=== PATIENT | female | born 1975 | race Caucasian/White ===

== ENCOUNTER 2016-09-14 12:32 | Inpatient (IN) ==
--- NOTE | 2016-09-14 12:56 | Emergency Department Note ---
Disposition Clinical Impression: Suicidal ideation, Depression, Acute anxiety, UTI (urinary tract infection) Disposition: Admitted As Inpatient Referrals: NO,PCP [Primary Care Provider] - Forms: ED Satisfaction Letter General Adult HPI - General Chief complaint: ED Psychiatric Symptoms Stated complaint: SI/Depression Time Seen by Provider: 09/14/16 12:52 Source: patient Limitations: no limitations - History of Present Illness HPI Narrative: 41-year-old female with a history of anxiety and depression reports emergency department with increasing anxiety secondary to social issues revolving around her daughter. The patient has also felt somewhat depressed. She is feeling like harming herself. There is no history of acute self-injurious behavior or drug overdose. She has no physical complaints. There is no history of headache neck stiffness or fever no convulsion or confusion no chest pain shortness of breath or abdominal pain no vomiting or diarrhea. The patient has had no trouble walking talking hearing seeing or speaking. No convulsions or confusion. The patient denies any physical complaints or concerns, her concerns are psychiatric in nature per her history. Onset (ago): day(s) Pain Scale: 8 - Related Data Home Medications Medication Instructions Recorded Confirmed Benztropine Mesylate 0.5 mg PO BID 05/30/15 08/21/16 ClonazePAM [Klonopin] 0.5 mg PO TID PRN 05/30/15 08/21/16 Divalproex (24 HR) [Depakote ER 1,000 mg PO HS 05/30/15 08/21/16 (24 HR)] Gabapentin [Neurontin] 100 mg PO TID 05/30/15 08/21/16 HydrOXYzine 25 mg PO BID 05/30/15 08/21/16 Omeprazole [PriLOSEC] 40 mg PO DAILY 05/30/15 08/21/16 Sertraline HCl [Zoloft] 100 mg PO DAILY 05/30/15 08/21/16 Simvastatin [Zocor] 10 mg PO HS 05/30/15 08/21/16 Vitamin D2 (50,000 UNIT) 50,000 units PO QWEEK 05/30/15 08/21/16 Diazepam [Valium] 5 mg PO BID PRN 02/11/16 08/21/16 Etodolac 300 mg PO BID 02/11/16 08/21/16 Famotidine [Pepcid] 20 mg PO BID 02/11/16 08/21/16 Levothyroxine [Synthroid] 100 mcg PO 0630 02/11/16 08/21/16 Lisinopril [Zestril] 10 mg PO DAILY 02/11/16 08/21/16 Prazosin [Minipress] 3 mg PO QPM 02/11/16 08/21/16 Topiramate [Topamax] 25 mg PO BID 02/11/16 08/21/16 Promethazine [Phenergan] 25 mg PO Q6HR PRN 08/01/16 08/21/16 Previous Rx's Medication Instructions Recorded Hydrocodone/Acetaminophen [Zahl 1 tab PO TID PRN #6 tab 03/09/16 5-325 Tablet] Acetaminophen/Butalbital/Caffe 1 each PO Q6HR PRN #16 tablet 06/13/16 [Fioricet] Acetaminophen/Butalbital/Caffe 1 each PO Q6HR #12 tablet 08/21/16 [Fioricet] Promethazine [Phenergan] 25 mg PO Q6HR #16 tablet 08/21/16 Sulfamethoxazole/Trimeth DS 1 each PO BID #20 tablet 08/21/16 [Bactrim DS] Allergies Allergy/AdvReac Type Severity Reaction Status Date / Time Penicillins [PCN] Allergy Anaphylaxis Verified 05/23/16 21:10 All systems ED: reviewed and negative except as stated. Past Medical History - Past Medical History Medical history: Reports: diabetes, fibromyalgia, GERD, hyperlipidemia, hypertension, migraine, seizures, thyroid disease Surgical history: Reports: breast surgery (Breast reduction), , orthopedic, other (Carpal tunnel) Psychiatric history: Reports: anxiety, ADHD, bipolar, depression, panic disorder , PTSD, schizophrenia, previous psychiatric hospitalization GEOMATICS PROFESSOR history: Reports: no GEOMATICS PROFESSOR history - Social History Smoking Status: Never smoker Smokeless Tobacco Status: No Alcohol use: Reports: none Drug use: Reports: none Physical Exam - General Limitations: no limitations General appearance: alert - Head Head exam: atraumatic, normocephalic, normal inspection - Eye Eye exam: Present: normal appearance, PERRL, EOMI - ENT ENT exam: normal exam, normal oropharynx, mucous membranes moist - Neck Neck exam: Present: normal inspection, full ROM, trachea midline - Chest Chest inspection: Present: symmetric chest wall rise. Absent: tenderness - Respiratory Respiratory exam: Present: normal lung sounds bilaterally. Absent: respiratory distress - Cardiovascular Cardiovascular exam: Present: regular rate, normal rhythm, normal heart sounds - Abdominal Exam Abdominal exam: Present: soft, Non-Tender. Absent: tenderness, distention, guarding, rebound, rigidity - Extremities Exam Extremities exam: Present: normal inspection, full ROM. Absent: tenderness, pedal edema - Expanded Lower Extremity Exam Hip/Pelvis exam: Present: full ROM. Absent: tenderness Upper leg exam: Present: full ROM. Absent: tenderness Knee exam: Present: full ROM. Absent: tenderness Lower leg exam: Present: full ROM. Absent: tenderness Ankle exam: Present: full ROM. Absent: tenderness Foot/toe exam: Present: full ROM. Absent: tenderness Neurovascular/Tendon exam: Present: normal capillary refill. Absent: motor deficit, sensory deficit, tendon deficit - Back Exam Back exam: Present: normal inspection, full ROM. Absent: tenderness, CVA tenderness (R), CVA tenderness (L), vertebral tenderness - Neurological Exam Neurological exam: Present: alert, oriented X3, CN II-XII intact. Absent: motor sensory deficit - Psychiatric Psychiatric exam: Present: normal affect, normal mood - Skin Skin exam: Present: warm, dry, intact, normal color. Absent: rash, cyanosis, diaphoresis, erythema, pallor, mottled Course Vital Signs Temperature 97.3 F L 09/14/16 12:41 Pulse Rate 99 09/14/16 12:41 Respiratory Rate 18 09/14/16 12:41 Blood Pressure 162/95 09/14/16 12:41 O2 Sat by Pulse Oximetry 98 09/14/16 12:41 Temperature 97.3 F L 09/14/16 12:41 Pulse Rate 91 09/14/16 17:33 Respiratory Rate 15 09/14/16 17:33 Blood Pressure 144/98 09/14/16 17:33 O2 Sat by Pulse Oximetry 97 09/14/16 17:33 Oxygen Delivery Oxygen Delivery Room Air Medical Decision Making - MDM Narrative Medical decision making narrative: The patient seems to be anxious and depressed and is expressing suicidal ideation. The patient has been medically cleared. She appears to have a low- grade UTI, an initial dose of Macrodantin was given. A psychiatric consult has been obtained. The patient has been admitted to psychiatric services. Currently stable. - Lab Data Lab results reviewed: Yes I reviewed the patient's lab results. Result diagrams: 09/14/16 13:50 09/14/16 13:50 Lab Results 09/14/16 09/14/16 09/14/16 Range/Units 13:16 13:16 13:50 WBC 7.5 (4.3-11.1) K/mcL RBC 4.72 (3.82-4.97) M/mcL Hgb 13.4 (11.5-15.4) g/dL Hct 38.8 (35.3-44.9) % MCV 82.2 L (83.0-100.0) fL MCH 28.4 (28.0-33.3) pg MCHC 34.5 (31.6-35.5) g/dL RDW 12.3 (11.5-14.5) % Plt Count 192 (140-400) K/mcL MPV 9.4 (9.4-12.4) fL Immature Gran % 0.5 (0-4) % Seg Neutrophils % 59.5 % Lymphocytes % 31.6 % Monocytes % 6.1 % Eosinophils % 1.6 % Basophils % 0.7 % Neutrophils # 4.5 (1.6-8.9) K/mcL Lymphocytes # 2.4 (0.6-4.6) K/mcL Monocytes # 0.5 (0.0-1.3) K/mcL Eosinophils # 0.1 (0.0-0.6) K/mcL Basophils # 0.1 (0.0-0.2) K/mcL Sodium (136-145) mEq/L Potassium (3.5-4.5) mEq/L Chloride (98-109) mEq/L Carbon Dioxide (19-29) mEq/L BUN (7-20) mg/dL Creatinine (0.57-1.11) mg/dL Est GFR ( Amer) (> 60) Est GFR (Non-Af Amer) (> 60) BUN/Creatinine Ratio (6-26) Glucose (70-99) mg/dL Calculated Osmolality (280-300) Calcium (8.6-10.8) mg/dL Ur Specimen Adequacy Urine Color Yellow (Yellow) Urine Clarity Turbid A (Clear) Urine pH 6.0 (5.0-8.0) pH Units Ur Specific [place] 1.017 (1.010-1.025) Urine Protein 30 H (Neg-Trace) mg/dL Urine Glucose (UA) Normal (Normal) mg/dL Urine Ketones Negative (Negative) mg/dL Urine Blood Negative (Negative) Urine Nitrite Negative (Negative) Urine Bilirubin Negative (Negative) Urine Urobilinogen Normal (Normal) mg/dL Ur Leukocyte Esterase Small H (Negative) Urine Microscopic RBC 0-3 (0-3) per hpf Urine Microscopic WBC 5-15 H (0-3) per hpf Ur Squamous Epith Cells Few (None-Few) per lpf Urine Bacteria Moderate H (None-Few) per hpf Hyaline Casts None Seen (None-Few) per lpf Salicylates (15-30) mg/dL Urine Opiates Screen Negative (Oowsyr=482) ng/mL Acetaminophen (10-30) mcg/mL Ur Barbiturates Screen Negative (Mljdva=054) ng/mL Ur Phencyclidine Scrn Negative (Cutoff=25) ng/mL Ur Amphetamines Screen Negative (Gbxkdv=1980) ng/mL U Benzodiazepines Scrn Negative (Clgwtp=980) ng/mL Urine Cocaine Screen Negative (Cutoff= 300) ng/mL U Marijuana (THC) Screen Negative (Cutoff = 50) ng/mL Ethyl Alcohol (0-10) mg/dL 09/14/16 Range/Units 13:50 WBC (4.3-11.1) K/mcL RBC (3.82-4.97) M/mcL Hgb (11.5-15.4) g/dL Hct (35.3-44.9) % MCV (83.0-100.0) fL MCH (28.0-33.3) pg MCHC (31.6-35.5) g/dL RDW (11.5-14.5) % Plt Count (140-400) K/mcL MPV (9.4-12.4) fL Immature Gran % (0-4) % Seg Neutrophils % % Lymphocytes % % Monocytes % % Eosinophils % % Basophils % % Neutrophils # (1.6-8.9) K/mcL Lymphocytes # (0.6-4.6) K/mcL Monocytes # (0.0-1.3) K/mcL Eosinophils # (0.0-0.6) K/mcL Basophils # (0.0-0.2) K/mcL Sodium 134 L (136-145) mEq/L Potassium 4.4 (3.5-4.5) mEq/L Chloride 106 (98-109) mEq/L Carbon Dioxide 19 (19-29) mEq/L BUN 7 (7-20) mg/dL Creatinine 0.74 (0.57-1.11) mg/dL Est GFR ( Amer) > 60 (> 60) Est GFR (Non-Af Amer) > 60 (> 60) BUN/Creatinine Ratio 9 (6-26) Glucose 144 H (70-99) mg/dL Calculated Osmolality 279 L (280-300) Calcium 9.1 (8.6-10.8) mg/dL Ur Specimen Adequacy Urine Color (Yellow) Urine Clarity (Clear) Urine pH (5.0-8.0) pH Units Ur Specific [place] (1.010-1.025) Urine Protein (Neg-Trace) mg/dL Urine Glucose (UA) (Normal) mg/dL Urine Ketones (Negative) mg/dL Urine Blood (Negative) Urine Nitrite (Negative) Urine Bilirubin (Negative) Urine Urobilinogen (Normal) mg/dL Ur Leukocyte Esterase (Negative) Urine Microscopic RBC (0-3) per hpf Urine Microscopic WBC (0-3) per hpf Ur Squamous Epith Cells (None-Few) per lpf Urine Bacteria (None-Few) per hpf Hyaline Casts (None-Few) per lpf Salicylates < 5.0 L (15-30) mg/dL Urine Opiates Screen (Xwqkms=977) ng/mL Acetaminophen 4.0 L (10-30) mcg/mL Ur Barbiturates Screen (Tkhjtg=938) ng/mL Ur Phencyclidine Scrn (Cutoff=25) ng/mL Ur Amphetamines Screen (Pqbxhy=9949) ng/mL U Benzodiazepines Scrn (Huwrvw=847) ng/mL Urine Cocaine Screen (Cutoff= 300) ng/mL U Marijuana (THC) Screen (Cutoff = 50) ng/mL Ethyl Alcohol < 10 (0-10) mg/dL
[2016-09-14 13:36] LABS: Bilirubin,Urine Negative (Negative); Blood,Urine Negative (Negative); Clarity,Urine Turbid (Clear); Color,Urine Yellow (Yellow); Glucose,Urine (UA) Normal (Normal); Ketones,Urine Negative (Negative); Leukocyte Esterase,Urine Small (Negative); Nitrite,Urine Negative (Negative); Protein,Urine 30 mg/dL (Neg-Trace); Specific Gravity,Urine 1.017 (1.010-1.025); Urobilinogen,Urine Normal (Normal)
[2016-09-14 13:41] LABS: Amphetamine Screen,Urine Negative ng/mL (Cutoff=1000); Barbiturate Screen,Urine Negative ng/mL (Cutoff=200); Benzodiazepines Screen,Urine Negative ng/mL (Cutoff=200); Cannabinoid Screen,Urine Negative ng/mL (Cutoff = 50); Cocaine Screen,Urine Negative ng/mL (Cutoff= 300); Opiate Screen,Urine Negative ng/mL (Cutoff=300); Phencyclidine Screen,Urine Negative ng/mL (Cutoff=25)
[2016-09-14 13:52] LABS: Bacteria,Urine Moderate per hpf (None-Few)
[2016-09-14 13:53] LABS: RBC,Urine 0-3 per hpf (0-3); Squamous Epithelial Cell,Urine Few per lpf (None-Few)
[2016-09-14 13:54] LABS: Hyaline Casts,Urine None Seen per lpf (None-Few)
[2016-09-14 14:01] LABS: Basophils # 0.1 K/mcL (0.0-0.2); Basophils % 0.7 %; Eosinophils # 0.1 K/mcL (0.0-0.6); Eosinophils % 1.6 %; Hematocrit 38.8 % (35.3-44.9); Hemoglobin 13.4 g/dL (11.5-15.4); Immature Granulocytes % 0.5 % (0-4); Lymphocytes # 2.4 K/mcL (0.6-4.6); Lymphocytes % 31.6 %; Mean Corpuscular HGB Conc 34.5 g/dL (31.6-35.5); Mean Corpuscular Hemoglobin 28.4 pg (28.0-33.3); Mean Corpuscular Volume 82.2 fL (83.0-100.0); Mean Platelet Volume 9.4 fL (9.4-12.4); Monocytes # 0.5 K/mcL (0.0-1.3); Monocytes % 6.1 %; Neutrophils # 4.5 K/mcL (1.6-8.9); Platelet Count 192 K/mcL (140-400); Red Blood Count 4.72 M/mcL (3.82-4.97); Red Cell Distribution Width 12.3 % (11.5-14.5); Segmented Neutrophils % 59.5 %
[2016-09-14 14:15] LABS: BUN/Creatinine Ratio 9 (6-26); Blood Urea Nitrogen 7 mg/dL (7-20); Calcium 9.1 mg/dL (8.6-10.8); Carbon Dioxide 19 mEq/L (19-29); Chloride 106 mEq/L (98-109); Ethanol < 10 mg/dL (0-10); Glucose 144 mg/dL (70-99); Osmolality,Calculated 279 (280-300); Potassium 4.4 mEq/L (3.5-4.5); Salicylate < 5.0 mg/dL (15-30); Sodium 134 mEq/L (136-145); eGFR For African Americans > 60 (> 60); eGFR For Non-African Americans > 60 (> 60)
[2016-09-14] MEDS ORDERED: Nitrofurantoin (BID) 100 MG CAPSULE PO ONE (16:26)
[2016-09-14] MEDS ORDERED: *HR* LORazepam 1 MG TABLET PO PRN (18:39)
[2016-09-14] MEDS ORDERED: Haloperidol Lactate 5 MG/ML VIAL IM PRN (18:39)
[2016-09-14] MEDS ORDERED: *HR* LORazepam 2 MG/ML VIAL IM PRN (18:39)
[2016-09-14] MEDS ORDERED: Mag Hydrox/Al Hydrox/Simeth 30 ML UDC PO PRN (18:39)
[2016-09-14] MEDS ORDERED: MOM Conc 10 ML UD.LIQ PO PRN (18:39)
[2016-09-14] MEDS: traZODone 50 MG TABLET PO PRN (21:57)
--- NOTE | 2016-09-15 10:07 | Psychiatry History & Physical ---
Date of Encounter: 09/15/16 Time of Encounter: 10:01 History of Present Illness Patient Stated Chief Complaint: suicidal Medicare Admission Attestation: For traditional Medicare patients the provided hospital inpatient services are reasonable and necessary and in the case of services not specified as inpatient -only under 42 CFR 419.22 (n), that they are appropriately provided as inpatient services in accordance 42 CFR 412.3. For Critical Access Hospital the patient may reasonably be expected to be discharged or transferred to a hospital within 96 hours after admission to the Critical Access Hospital. Admitted From: Emergency Dept History of Present Illness: Ms. Nicholas is a 41 year old female admitted from the emergency department where she presented with suicidal ideation depression patient was reported to make comment on Facebook and she was upset that one of her daughters attempted suicide. Patient has a history of major depression recurrent and anxiety has been treated in the past with medication has not been taking medication for the last several months and displaying poor insight and judgment. Patient also was noncompliant was for medical medication and listed as diabetic however she is not taking diabetes medication patient denied any previous admission to Hospital psychiatric hospital benefits stated that she was seen as outpatient in the past. Patient has a history of intellectual deficits and she was in special classes in school and then attended up to 8th grade level. Past Med Surg Social Fam HX - Past Medical History Medical history: arthritis, diabetes, GERD, hypertension, migraine, osteoporosis , seizures, syncope - Past Psychiatric History Psychiatric history: Reports: anxiety, depression. Denies: previous psychiatric hospitalization Family psychiatric history: Unknown Family Psychiatric History Details: dtr attempted suicide Family History of Suicide: Unknown - Past Surgical History Surgical History: breast surgery, , orthopedic, other - Social History Smoking Status: Never smoker Smokeless Tobacco Status: No Alcohol use: none Drug use: none Medications & Allergies No Known Home Drugs 09/15/16 [History] Allergies Penicillins [PCN] Allergy (Verified 05/23/16 21:10) Anaphylaxis Review of Systems Psychiatric: Reports: depression, suicidal ideation Mental Status Exam Patient orientation: Yes Person, Yes Time, Yes Place Level of alertness: Sedated Patient appearance: Appropriate, Well Groomed Behavior: calm, cooperative Psychomotor activity: Slowed Eye contact: Maintains Eye Contact Mood description: Depressed, Anxious Affect description: constricted, dysphoric Speech pattern: Normal rate, Normal rhythm, Normal tone Speech volume: Soft/Quiet Thought process: Circumstantial, Tangential, Thought Blocking, Slowed Thinking Thought content: Yes Suicidal ideation Perceptual disturbances: No Auditory hallucinations, No Visual hallucinations Attention span: Capable of Focused Attention Memory description: Grossly Intact Patient reliability: Reliable Historian Intelligence estimate: Below Average Judgment: Limited Insight: Minimal Results - Vital Signs Vital signs: Temp Pulse Resp BP Pulse Ox 97.6 F 80 16 139/99 97 09/15/16 08:46 09/15/16 08:46 09/15/16 08:46 09/15/16 08:46 09/14/16 17:33 - Labs Labs: Laboratory Last Values WBC 7.5 K/mcL (4.3-11.1) 09/14/16 13:50 RBC 4.72 M/mcL (3.82-4.97) 09/14/16 13:50 Hgb 13.4 g/dL (11.5-15.4) 09/14/16 13:50 Hct 38.8 % (35.3-44.9) 09/14/16 13:50 MCV 82.2 fL (83.0-100.0) L 09/14/16 13:50 MCH 28.4 pg (28.0-33.3) 09/14/16 13:50 MCHC 34.5 g/dL (31.6-35.5) 09/14/16 13:50 RDW 12.3 % (11.5-14.5) 09/14/16 13:50 Plt Count 192 K/mcL (140-400) 09/14/16 13:50 MPV 9.4 fL (9.4-12.4) 09/14/16 13:50 Immature Gran % 0.5 % (0-4) 09/14/16 13:50 Seg Neutrophils % 59.5 % 09/14/16 13:50 Lymphocytes % 31.6 % 09/14/16 13:50 Monocytes % 6.1 % 09/14/16 13:50 Eosinophils % 1.6 % 09/14/16 13:50 Basophils % 0.7 % 09/14/16 13:50 Neutrophils # 4.5 K/mcL (1.6-8.9) 09/14/16 13:50 Lymphocytes # 2.4 K/mcL (0.6-4.6) 09/14/16 13:50 Monocytes # 0.5 K/mcL (0.0-1.3) 09/14/16 13:50 Eosinophils # 0.1 K/mcL (0.0-0.6) 09/14/16 13:50 Basophils # 0.1 K/mcL (0.0-0.2) 09/14/16 13:50 Sodium 134 mEq/L (136-145) L 09/14/16 13:50 Potassium 4.4 mEq/L (3.5-4.5) 09/14/16 13:50 Chloride 106 mEq/L (98-109) 09/14/16 13:50 Carbon Dioxide 19 mEq/L (19-29) 09/14/16 13:50 BUN 7 mg/dL (7-20) 09/14/16 13:50 Creatinine 0.74 mg/dL (0.57-1.11) 09/14/16 13:50 Est GFR ( Amer) > 60 (> 60) 09/14/16 13:50 Est GFR (Non-Af Amer) > 60 (> 60) 09/14/16 13:50 BUN/Creatinine Ratio 9 (6-26) 09/14/16 13:50 Glucose 144 mg/dL (70-99) H 09/14/16 13:50 POC Glucose 108 (58-89) H 09/15/16 07:14 Calculated Osmolality 279 (280-300) L 09/14/16 13:50 Calcium 9.1 mg/dL (8.6-10.8) 09/14/16 13:50 Ur Specimen Adequacy 09/14/16 13:16 Urine Color Yellow (Yellow) 09/14/16 13:16 Urine Clarity Turbid (Clear) A 09/14/16 13:16 Urine pH 6.0 pH Units (5.0-8.0) 09/14/16 13:16 Ur Specific [place] 1.017 (1.010-1.025) 09/14/16 13:16 Urine Protein 30 mg/dL (Neg-Trace) H 09/14/16 13:16 Urine Glucose (UA) Normal mg/dL (Normal) 09/14/16 13:16 Urine Ketones Negative mg/dL (Negative) 09/14/16 13:16 Urine Blood Negative (Negative) 09/14/16 13:16 Urine Nitrite Negative (Negative) 09/14/16 13:16 Urine Bilirubin Negative (Negative) 09/14/16 13:16 Urine Urobilinogen Normal mg/dL (Normal) 09/14/16 13:16 Ur Leukocyte Esterase Small (Negative) H 09/14/16 13:16 Urine Microscopic RBC 0-3 per hpf (0-3) 09/14/16 13:16 Urine Microscopic WBC 5-15 per hpf (0-3) H 09/14/16 13:16 Ur Squamous Epith Cells Few per lpf (None-Few) 09/14/16 13:16 Urine Bacteria Moderate per hpf (None-Few) H 09/14/16 13:16 Hyaline Casts None Seen per lpf (None-Few) 09/14/16 13:16 Salicylates < 5.0 mg/dL (15-30) L 09/14/16 13:50 Urine Opiates Screen Negative ng/mL (Hpaiim=988) 09/14/16 13:16 Acetaminophen 4.0 mcg/mL (10-30) L 09/14/16 13:50 Ur Barbiturates Screen Negative ng/mL (Gxhaax=140) 09/14/16 13:16 Ur Phencyclidine Scrn Negative ng/mL (Cutoff=25) 09/14/16 13:16 Ur Amphetamines Screen Negative ng/mL (Qondvp=6529) 09/14/16 13:16 U Benzodiazepines Scrn Negative ng/mL (Eacmet=648) 09/14/16 13:16 Urine Cocaine Screen Negative ng/mL (Cutoff= 300) 09/14/16 13:16 U Marijuana (THC) Screen Negative ng/mL (Cutoff = 50) 09/14/16 13:16 Ethyl Alcohol < 10 mg/dL (0-10) 09/14/16 13:50 Assessment and Plan (1) Depression Current visit: Yes Status: Acute Plan: Admit inpatient for safety and stabilization, Close observation, Suicide Precautions per unit protocol, Encourage participation in unit milieu, Group Therapy, Monitor sleep, Monitor appetite Additional Plan: I discussed with patient treatment plan for depression. She is willing to restart on medication and I discussed her medication history and at this time I will start her on sertraline 100 mg daily and Wellbutrin SR 150 mg daily benefits side effects were discussed with patient and she has no allergies to medication and her response will be monitored daily. Risks, benefits, side effects, alternatives discussed w/pt: Yes Patient agreeable to treatment: Yes Estimated Length of Stay (Days): 5 Qualifiers: Depression Type: major depressive disorder Major depression recurrence: recurrent Active/Remission status: currently active Major depression episode severity: moderate Qualified Code(s): F33.1 - Major depressive disorder, recurrent, moderate
[2016-09-15] MEDS: BuPROPion XL (24 HR) 150 MG TABLET PO SCH (10:36)
[2016-09-15] MEDS: traZODone 50 MG TABLET PO PRN (21:41)
[2016-09-16] MEDS: BuPROPion XL (24 HR) 150 MG TABLET PO SCH (08:35)
[2016-09-16] MEDS: Acetaminophen 325 MG TABLET PO PRN ×2 (08:54→20:28)
[2016-09-16] MEDS ORDERED: Acetaminophen 325 MG TABLET PO ONE (12:23)
--- NOTE | 2016-09-16 12:26 | Psychiatry Progress Note ---
Date of Encounter: 09/16/16 Time of Encounter: 12:23 Subjective Interval history: Patient is seen for follow-up. I reviewed nursing report and notes, patient is reported to be compliant with his medication and her acting with staff and peers appropriately. She is participating in groups. Her medication was reviewed and updated and she denies any suicidal ideation. Review of Systems Psychiatric: Reports: depression, anxiety. Denies: suicidal ideation Objective: Exam Patient orientation: Yes Person, Yes Time, Yes Place Level of alertness: Alert Patient appearance: Appropriate, Well Groomed Behavior: calm, cooperative Psychomotor activity: Slowed Eye contact: Maintains Eye Contact Mood description: Depressed, Anxious Affect description: constricted Speech pattern: Normal rate, Normal rhythm, Normal tone Speech volume: Soft/Quiet Thought process: Circumstantial, Tangential, Thought Blocking, Slowed Thinking Thought content: No Suicidal ideation, No Homicidal ideation Perceptual disturbances: No Auditory hallucinations, No Visual hallucinations Judgment: Limited Insight: Minimal Results - Vital Signs Vital Signs: Temp Pulse Resp BP Pulse Ox 98.2 F 84 16 126/92 97 09/16/16 08:25 09/16/16 08:25 09/16/16 08:25 09/16/16 08:25 09/14/16 17:33 - Labs Labs: Laboratory Results - last 24 hr 09/15/16 09/15/16 09/16/16 16:35 21:31 11:44 POC Glucose 110 H 138 H 132 H Assessment and Plan (1) Depression Current visit: Yes Status: Acute Plan: Continue hospitalization, Close observation, Suicide Precautions per unit protocol, Encourage participation in unit milieu, Group Therapy, Monitor sleep, Monitor appetite Risks, benefits, side effects, alternatives discussed w/pt: Yes Patient agreeable to treatment: Yes Qualifiers: Depression Type: major depressive disorder Major depression recurrence: recurrent Active/Remission status: currently active Major depression episode severity: moderate Qualified Code(s): F33.1 - Major depressive disorder, recurrent, moderate Consult Discharge Plan - Plan Referrals: Romaine Durán [Outside] - 09/21/16 2:00 pm (The above appointment is with Beth Díaz. After you see Beth, she will schedule you to see the new psychiatric prescriber.) [facility] - 09/21/16 10:15 am (The above appointment is with Glenis Castillo to establish you with a new primary care provider. Please arrive 15 minutes early to complete paperwork. Please bring your insurance card, photo ID and medications in their original bottles. If you do not have insurance, bring proof of income to apply for the sliding fee scale. If you are unable to keep this appointment, 24 hour business notice of cancellation is expected. )
[2016-09-16] MEDS: traZODone 50 MG TABLET PO PRN (20:28)
[2016-09-16] MEDS: hydrOXYzine pamoate 25 MG CAPSULE PO PRN (20:28)
[2016-09-17] MEDS ORDERED: Ketorolac 30 MG/ML VIAL IM STA ×2 (03:51→04:25)
[2016-09-17] MEDS ORDERED: Orphenadrine 60 MG/2 ML VIAL IM ONE (03:54)
[2016-09-17] MEDS: BuPROPion XL (24 HR) 150 MG TABLET PO SCH (08:56)
[2016-09-17] MEDS ORDERED: *HR* Promethazine 25 MG/ML VIAL IM PRN (09:00)
[2016-09-17] MEDS ORDERED: Orphenadrine 60 MG/2 ML VIAL IM PRN (09:00)
[2016-09-17] MEDS ORDERED: SUMAtriptan succinate 25 MG TABLET PO ONE (09:08)
[2016-09-17] MEDS ORDERED: Ondansetron 4 MG/2 ML VIAL IM PRN (09:10)
--- NOTE | 2016-09-17 09:20 | Internal Medicine Consult Note ---
Date of Encounter: 09/17/16 Time of Encounter: 09:13 Internal Medicine - CN: HPI - Data of Consult Patient: new to practice Requesting Physician: Konrad Harvey MD - Consult Narrative History of present illness: Ms. Nicholas is a 41 year old female consulted to hospitalist service for headache. patient was seen at the bedside, she reports that she was having headache since 7 am yesterday morning. was given a dose of toradol last night which the patient says helped somewhat. she gives h/o migraine and has nausea but has not vomited. she says she has constant headache even at home and not sure what she takes at home for that. she denies any visual problems, seizures, any focal weakness. no h/o LOC>. - Constitutional Constitutional: as per HPI - EENT Ears: as per HPI Nose, mouth and throat: as per HPI - Breasts Breasts: as per HPI - Cardiovascular Cardiovascular ROS IM: as per HPI - Respiratory Respiratory: as per HPI - Gastrointestinal Gastrointestinal: as per HPI - Genitourinary Genitourinary: as per HPI Past Med Surg Social Fam HX - Past Medical History Medical history: arthritis, diabetes, GERD, hypertension, migraine, osteoporosis , seizures, syncope Psychiatric history: anxiety, depression - Past Surgical History Surgical History: breast surgery, , orthopedic, other - Social History Smoking Status: Never smoker Smokeless Tobacco Status: No Alcohol use: none Drug use: none Internal Medicine - CN: Meds No Known Home Drugs 09/15/16 [History] Allergies Penicillins [PCN] Allergy (Verified 05/23/16 21:10) Anaphylaxis Internal Medicine - CN: Exam - Constitutional Vitals: Temp Pulse Resp BP Pulse Ox 98.4 F 99 16 129/96 97 09/16/16 21:00 09/16/16 21:00 09/16/16 21:00 09/16/16 21:00 09/14/16 17:33 General appearance IM: Present: A&O X 3, no acute distress Exam: neck- supple chest- b/l clear, no added sounds CVS-s1 and s2, no mr/g abd-soft, non tender, bs are present ext- no edema neuro- alert and awake, no focal defecits. Internal Medicine - CN: Reslt - Labs CBC & Chem 7: 09/14/16 13:50 09/14/16 13:50 - Assessment and Plan (1) Headache Current Visit: Yes Status: Acute Assessment and plan: has h/o migraine headaches and says its constant. was given a dose of toradol last night, will keep that prn for severe headache as she says it helped. will start imitrex 25 po once now and may repeat x1 after 2hrs . will also start on zofran for supportive treatment. 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 please reconsult prn as needed. Qualifiers: Headache type: other vascular headache Qualified Code(s): G44.1 - Vascular headache, not elsewhere classified (2) Suicidal ideation Current Visit: Yes Status: Acute Assessment and plan: management as per primary service. Consult Discharge Plan - Plan Instructions: Depression (DC), Anxiety (DC) Referrals: [facility] - 09/21/16 2:00 pm (The above appointment is with Beth Díaz. After you see Beth, she will schedule you to see the new psychiatric prescriber.) Ted White [facility] [Outside] - 09/21/16 10:15 am (The above appointment is with Glenis Castillo to establish you with a new primary care provider. Please arrive 15 minutes early to complete paperwork. Please bring your insurance card, photo ID and medications in their original bottles. If you do not have insurance, bring proof of income to apply for the sliding fee scale. If you are unable to keep this appointment, 24 hour business notice of cancellation is expected. )
[2016-09-17] MEDS: SUMAtriptan succinate 25 MG TABLET PO PRN (10:19)
--- NOTE | 2016-09-17 13:33 | Psychiatry Progress Note ---
Date of Encounter: 09/17/16 Time of Encounter: 13:31 Subjective Interval history: Patient is seen for follow-up. Nursing staff reported patient complained of headache and migraine headache and I ordered an internal medicine consult. Medicine consultation appreciated and recommendation whether noted patient was prescribed medication to help with her migraine headache and he was when necessary. Otherwise she continued to have her sugar under control. Her discharge planning is ongoing patient has not been compliant with his medication appointments in the past and her brother is willing to help her after discharge. She denied any suicidal ideation Review of Systems Psychiatric: Reports: depression, anxiety. Denies: suicidal ideation Objective: Exam Patient orientation: Yes Person, Yes Time, Yes Place Level of alertness: Alert Patient appearance: Appropriate, Well Groomed Behavior: calm, cooperative Psychomotor activity: Normal Eye contact: Maintains Eye Contact Mood description: Depressed, Anxious Affect description: constricted Speech pattern: Normal rate, Normal rhythm, Normal tone Speech volume: Soft/Quiet Thought process: Circumstantial, Tangential, Thought Blocking, Slowed Thinking Thought content: No Suicidal ideation, No Homicidal ideation Perceptual disturbances: No Auditory hallucinations, No Visual hallucinations Judgment: Limited Insight: Minimal Results - Vital Signs Vital Signs: Temp Pulse Resp BP Pulse Ox 98.6 F 84 16 119/83 97 09/17/16 09:00 09/17/16 09:00 09/17/16 09:00 09/17/16 09:00 09/14/16 17:33 Assessment and Plan (1) Depression Current visit: Yes Status: Acute Plan: Continue hospitalization, Close observation, Suicide Precautions per unit protocol, Encourage participation in unit milieu, Group Therapy, Monitor sleep, Monitor appetite Additional Plan: Patient complaining of more frequent headache and migraine headache she believes that Wellbutrin is causing more headache for her and she asked me if she can discontinue it. Also she mentioned that she was treated with Latuda with good results. I will discontinue Wellbutrin and start patient on Latuda 40 mg. Benefits and side effects were discussed. Risks, benefits, side effects, alternatives discussed w/pt: Yes Patient agreeable to treatment: Yes Qualifiers: Depression Type: major depressive disorder Major depression recurrence: recurrent Active/Remission status: currently active Major depression episode severity: moderate Qualified Code(s): F33.1 - Major depressive disorder, recurrent, moderate Consult Discharge Plan - Plan Instructions: Depression (DC), Anxiety (DC) Referrals: Romaine Durán [Outside] - 09/21/16 2:00 pm (The above appointment is with Beth Díaz. After you see Beth, she will schedule you to see the new psychiatric prescriber.) [facility] [Outside] - 09/21/16 10:15 am (The above appointment is with Glenis Castillo to establish you with a new primary care provider. Please arrive 15 minutes early to complete paperwork. Please bring your insurance card, photo ID and medications in their original bottles. If you do not have insurance, bring proof of income to apply for the sliding fee scale. If you are unable to keep this appointment, 24 hour business notice of cancellation is expected. )
[2016-09-17] MEDS: traZODone 50 MG TABLET PO SCH (22:12)
[2016-09-17] MEDS: Ketorolac 30 MG/ML VIAL IM PRN (22:13)
[2016-09-17] MEDS: hydrOXYzine pamoate 25 MG CAPSULE PO PRN (22:13)
[2016-09-18] MEDS: SUMAtriptan succinate 25 MG TABLET PO PRN ×3 (12:32→20:23)
--- NOTE | 2016-09-18 14:02 | Psychiatry Progress Note ---
Date of Encounter: 09/18/16 Time of Encounter: 14:14 Subjective Interval history: Patient is seen for follow-up. Nursing staff reported patient has been compliant with medication and participated in group activities. Denies suicidal ideation and reports and reports good sleep. She is planning to stay with her brother after discharge from the hospital and he will help her with appointments and taking her medication on time. Review of Systems Psychiatric: Reports: depression, anxiety. Denies: suicidal ideation Objective: Exam Patient orientation: Yes Person, Yes Time, Yes Place Level of alertness: Alert Patient appearance: Appropriate, Well Groomed Behavior: calm, cooperative Psychomotor activity: Normal Eye contact: Maintains Eye Contact Mood description: Depressed, Anxious Affect description: constricted Speech pattern: Normal rate, Normal rhythm, Normal tone Speech volume: Soft/Quiet Thought process: Circumstantial, Tangential, Thought Blocking, Slowed Thinking Thought content: No Suicidal ideation, No Homicidal ideation Perceptual disturbances: No Auditory hallucinations, No Visual hallucinations Judgment: Limited Insight: Minimal Results - Vital Signs Vital Signs: Temp Pulse Resp BP Pulse Ox 98.2 F 84 17 110/77 97 09/18/16 09:00 09/18/16 09:00 09/18/16 09:00 09/18/16 09:00 09/14/16 17:33 - Labs Labs: Laboratory Results - last 24 hr 09/17/16 21:31 POC Glucose 174 H Assessment and Plan (1) Depression Current visit: Yes Status: Acute Plan: Continue hospitalization, Close observation, Suicide Precautions per unit protocol, Encourage participation in unit milieu, Group Therapy, Monitor sleep, Monitor appetite Risks, benefits, side effects, alternatives discussed w/pt: Yes Patient agreeable to treatment: Yes Qualifiers: Depression Type: major depressive disorder Major depression recurrence: recurrent Active/Remission status: currently active Major depression episode severity: moderate Qualified Code(s): F33.1 - Major depressive disorder, recurrent, moderate Consult Discharge Plan - Plan Instructions: Depression (DC), Anxiety (DC) Referrals: Romaine Durán [Outside] - 09/21/16 2:00 pm (The above appointment is with Beth Díaz. After you see Beth, she will schedule you to see the new psychiatric prescriber.) [facility] [Outside] - 09/21/16 10:15 am (The above appointment is with Glenis Castillo to establish you with a new primary care provider. Please arrive 15 minutes early to complete paperwork. Please bring your insurance card, photo ID and medications in their original bottles. If you do not have insurance, bring proof of income to apply for the sliding fee scale. If you are unable to keep this appointment, 24 hour business notice of cancellation is expected. )
[2016-09-18] MEDS: *HR* Metformin 500 MG TABLET PO SCH (16:48)
[2016-09-18] MEDS: traZODone 50 MG TABLET PO SCH (20:23)
[2016-09-18] MEDS: hydrOXYzine pamoate 25 MG CAPSULE PO PRN (20:23)
[2016-09-18] MEDS: traZODone 50 MG TABLET PO PRN (22:55)
[2016-09-18] MEDS: Ketorolac 30 MG/ML VIAL IM PRN (22:55)
[2016-09-19] MEDS: *HR* Metformin 500 MG TABLET PO SCH ×2 (08:16→16:23)
--- NOTE | 2016-09-19 11:17 | Psychiatry Progress Note ---
Date of Encounter: 09/19/16 Time of Encounter: 11:23 Subjective Interval history: Patient is seen for follow-up. Patient states she is denying suicidal ideation she is participating in activities and compliant with medication. She was started on metformin and her blood sugar under control. She will complain of headache and respond to treatment. Review of Systems Psychiatric: Reports: depression, anxiety. Denies: suicidal ideation Objective: Exam Patient orientation: Yes Person, Yes Time, Yes Place Level of alertness: Alert Patient appearance: Appropriate, Well Groomed Behavior: calm, cooperative Psychomotor activity: Normal Eye contact: Maintains Eye Contact Mood description: Depressed, Anxious Affect description: congruent with mood, euthymic Speech pattern: Normal rate, Normal rhythm, Normal tone Speech volume: Soft/Quiet Thought process: Circumstantial, Tangential, Thought Blocking, Slowed Thinking Thought content: No Suicidal ideation, No Homicidal ideation Perceptual disturbances: No Auditory hallucinations, No Visual hallucinations Judgment: Limited Insight: Minimal Results - Vital Signs Vital Signs: Temp Pulse Resp BP Pulse Ox 98.4 F 77 16 118/76 97 09/19/16 08:13 09/19/16 08:13 09/19/16 08:13 09/19/16 08:13 09/14/16 17:33 - Labs Labs: Laboratory Results - last 24 hr 09/18/16 09/19/16 16:26 07:10 POC Glucose 100 H 87 Assessment and Plan (1) Depression Current visit: Yes Status: Acute Plan: Continue hospitalization, Close observation, Suicide Precautions per unit protocol, Encourage participation in unit milieu, Group Therapy, Monitor sleep, Monitor appetite Risks, benefits, side effects, alternatives discussed w/pt: Yes Patient agreeable to treatment: Yes Qualifiers: Depression Type: major depressive disorder Major depression recurrence: recurrent Active/Remission status: currently active Major depression episode severity: moderate Qualified Code(s): F33.1 - Major depressive disorder, recurrent, moderate Consult Discharge Plan - Plan Instructions: Depression (DC), Anxiety (DC) Referrals: Romaine Durán [Outside] - 09/21/16 2:00 pm (The above appointment is with Beth Díaz. After you see Beth, she will schedule you to see the new psychiatric prescriber.) [facility] [Outside] - 09/21/16 10:15 am (The above appointment is with Glenis Castillo to establish you with a new primary care provider. Please arrive 15 minutes early to complete paperwork. Please bring your insurance card, photo ID and medications in their original bottles. If you do not have insurance, bring proof of income to apply for the sliding fee scale. If you are unable to keep this appointment, 24 hour business notice of cancellation is expected. )
[2016-09-19] MEDS: SUMAtriptan succinate 25 MG TABLET PO PRN ×3 (13:20→21:13)
[2016-09-19] MEDS: traZODone 50 MG TABLET PO SCH (21:12)
[2016-09-19] MEDS: hydrOXYzine pamoate 25 MG CAPSULE PO PRN (21:35)
[2016-09-20] MEDS: *HR* Metformin 500 MG TABLET PO SCH (07:02)
[2016-09-20 09:32] VITALS: BP 108/72
--- NOTE | 2016-09-20 10:20 | Discharge Summary ---
Date of Encounter: 09/20/16 Time of Encounter: 10:36 Diagnosis - Discharge Diagnosis (1) Depression Priority: Primary Status: Acute Qualifiers: Depression Type: major depressive disorder Major depression recurrence: recurrent Active/Remission status: currently active Major depression episode severity: moderate Qualified Code(s): F33.1 - Major depressive disorder, recurrent, moderate (2) Suicidal ideation Priority: Secondary Status: Acute Medications - Discharge Medications Prescriptions: Lurasidone [Latuda] 40 mg PO DAILY #30 tablet Metformin [Glucophage] 500 mg PO BIDWM #60 tablet SUMAtriptan [Imitrex] 25 mg PO Q2H PRN #10 tablet PRN Reason: Migraine Headache Sertraline [Zoloft] 100 mg PO DAILY #30 tablet TraZODone 100 mg PO HS #30 tablet Lurasidone [Latuda] 40 mg PO DAILY #30 tablet 09/20/16 [Rx] Metformin [Glucophage] 500 mg PO BIDWM #60 tablet 09/20/16 [Rx] SUMAtriptan [Imitrex] 25 mg PO Q2H PRN #10 tablet 09/20/16 [Rx] Sertraline [Zoloft] 100 mg PO DAILY #30 tablet 09/20/16 [Rx] TraZODone 100 mg PO HS #30 tablet 09/20/16 [Rx] Allergies Penicillins [PCN] Allergy (Verified 05/23/16 21:10) Anaphylaxis Provider Date of admission: 09/14/16 18:02 Primary care physician: PCP NO Discharging clinician: Konrad Harvey Assessment and Plan - Patient/Caregiver Discharge Instructions Activity: resume usual activities as tolerated Diet: regular diet - Follow up Plan Follow up with: Romaine Durán [Outside] - 09/21/16 2:00 pm (The above appointment is with Beth Díaz. After you see Beth, she will schedule you to see the new psychiatric prescriber.) [facility] - 09/21/16 10:15 am (The above appointment is with Glenis Castillo to establish you with a new primary care provider. Please arrive 15 minutes early to complete paperwork. Please bring your insurance card, photo ID and medications in their original bottles. If you do not have insurance, bring proof of income to apply for the sliding fee scale. If you are unable to keep this appointment, 24 hour business notice of cancellation is expected. ) Overall status at discharge: Stable Disposition: Home, Self-Care Hospital Course Hospital course: Ms. Nicholas is a 41 year old female admitted with depression and suicidal ideation in addition to noncompliance with medication treatments. For details of the admission please see H&P. On admission patient medication were reviewed information was not available because she was not taking any medication for several months prior to admission. The nursing staff verified previous prescription from pharmacy and patient was placed on Zoloft and trazodone and Latuda 40 mg in addition to other medication prescribed by her primary care. Patient also was seen by the consult from neurology to evaluate migraine. Patient responded well to medication she did not tolerate Wellbutrin and it was discontinued but she responded well to other medication she reported improved sleep stable moods and denies suicidal ideation also her blood sugar was monitored and she was started on metformin. dish room worker contacted patient's brother and discussed with him discharge plan and compliance with medication and appointments and also safety plan. He was supportive and accepted patient to stay with him after discharge. Prior to discharge patient was medically stable and denies suicidal ideation was future oriented and looking forward to discharge. - Time Spent with Patient Total time spent providing and/or coordinating discharge services: Less than 30 minutes Quality - Multiple Antipsychotics Patient discharged on 2 or more antipsychotic medications: No Procedures - Procedures Procedures: Medication Management, Crisis Stabilization, Supportive Therapy, Group Therapy, Psychoeducational Therapy Mental Status Exam - Mental Status Exam Patient orientation: Yes Person, Yes Time, Yes Place Level of alertness: Alert Patient appearance: Appropriate, Well Groomed Behavior: calm, cooperative Psychomotor activity: Normal Eye contact: Maintains Eye Contact Mood description: Anxious Affect description: congruent with mood, euthymic Speech pattern: Normal rate, Normal rhythm, Normal tone Speech Volume: Soft/Quiet Thought process: Circumstantial, Tangential, Thought Blocking, Slowed Thinking Thought Content: No Suicidal ideation, No Homicidal ideation Perceptual Disturbances: No Auditory hallucinations, No Visual hallucinations Judgment: Fair Insight: Partial
[2016-09-20] MEDS: SUMAtriptan succinate 25 MG TABLET PO PRN (10:37)
[2016-09-20] MEDS: hydrOXYzine pamoate 25 MG CAPSULE PO PRN (10:37)
== END 2016-09-20 13:00 | disposition home or self-care (01) | DRG 751 ==
LOC: EMEROO 12:32 → 1ANU 18:02
PROVIDERS: ADMIT Psychiatry & Neurology Psychiatry; ATTEND Psychiatry & Neurology Psychiatry

== ENCOUNTER 2017-02-14 15:45 | Inpatient (IN) ==
--- NOTE | 2017-02-14 15:56 | Emergency Department Note ---
Disposition Clinical Impression: Suicidal ideation, Depression, Acute anxiety, Diabetes, UTI (urinary tract infection), Thrombocytopenia Disposition: Admitted As Inpatient Referrals: NO,PCP [Primary Care Provider] - Forms: ED Satisfaction Letter General Adult HPI - General Chief complaint: ED Psychiatric Symptoms Stated complaint: SI Time Seen by Provider: 02/14/17 15:56 - History of Present Illness HPI Narrative: 41-year-old female reports emergency department feeling anxious. She came in by EMS from urgent care. The patient states she is thinking about harming herself. She has been somewhat depressed as well. There is no history of overdose or self injurious behavior. There is no history of acute physical complaint. She has a history of depression and takes antidepressants but states she does not take anti-anxietal medicine. There is no history of trauma. No headache neck stiffness rash or fever. No abdominal pain vomiting or diarrhea vaginal discharge or urinary symptoms or acute back pain. There is no history of chest pain or acute shortness of breath. No trouble walking talking hearing seeing or speaking. There is no history of bilateral arm or leg weakness or numbness. No coughing coughing of blood leg swelling or pain or passing out. No seizures. The patient she is diabetic on oral medications. No history of high blood sugars reported. No slurred speech or any other acute complaint or concern. - Related Data Home Medications Medication Instructions Recorded Confirmed Divalproex (12 HR) [Depakote (12 1,000 mg PO HS 02/04/17 02/14/17 HR)] Lisinopril [Zestril] 10 mg PO DAILY 02/04/17 02/14/17 Lurasidone [Latuda] 40 mg PO DAILY 02/04/17 02/14/17 Prazosin [Minipress] 1 mg PO HS 02/04/17 02/14/17 Rizatriptan Benzoate [Maxalt] 5 mg PO DAILY PRN 02/04/17 02/14/17 Simvastatin [Zocor] 40 mg PO HS 02/04/17 02/14/17 metFORMIN [Glucophage] 500 mg PO BIDWM 02/04/17 02/14/17 Diclofenac Potassium 50 mg PO BID 02/14/17 02/14/17 Etodolac 500 mg PO BID 02/14/17 02/14/17 Allergies Allergy/AdvReac Type Severity Reaction Status Date / Time Penicillins [PCN] Allergy Anaphylaxis Verified 02/14/17 14:47 All systems ED: reviewed and negative except as stated. Past Medical History - Past Medical History Medical history: Reports: diabetes, hypertension Surgical history: Reports: breast surgery, , orthopedic, other Psychiatric history: Reports: anxiety, depression [employer] history: Reports: bilateral tubal ligation - Social History Smoking Status: Never smoker Smokeless Tobacco Status: No Alcohol use: Reports: none Drug use: Reports: none Physical Exam - General Limitations: no limitations General appearance: alert, in no apparent distress - Head Head exam: atraumatic, normocephalic, normal inspection - Eye Eye exam: Present: normal appearance, PERRL, EOMI - ENT ENT exam: normal exam, normal oropharynx, mucous membranes moist, TM's normal bilaterally, normal external ear exam - Neck Neck exam: Present: normal inspection, full ROM, trachea midline. Absent: tenderness - Chest Chest inspection: Present: symmetric chest wall rise. Absent: tenderness - Respiratory Respiratory exam: Present: normal lung sounds bilaterally. Absent: respiratory distress, wheezes, stridor, accessory muscle use, prolonged expiratory phase - Cardiovascular Cardiovascular exam: Present: regular rate, normal rhythm, normal heart sounds - Abdominal Exam Abdominal exam: Present: soft, Non-Tender, normal bowel sounds. Absent: tenderness, distention, guarding, rebound, rigidity, pulsatile mass - Extremities Exam Extremities exam: Present: normal inspection, full ROM, normal capillary refill. Absent: tenderness, pedal edema, joint swelling, calf tenderness - Expanded Lower Extremity Exam Lower leg exam: Absent: Homans' sign Neurovascular/Tendon exam: Present: normal capillary refill. Absent: pulse deficit, motor deficit, sensory deficit, tendon deficit, extremity cold to touch , pallor - Back Exam Back exam: Present: full ROM. Absent: tenderness, CVA tenderness (R), CVA tenderness (L), vertebral tenderness - Neurological Exam Neurological exam: Present: alert, oriented X3, CN II-XII intact. Absent: motor sensory deficit - Psychiatric Psychiatric exam: Present: anxious - Skin Skin exam: Present: warm, dry, intact, normal color. Absent: rash, cyanosis, diaphoresis, erythema, pallor, mottled Course Vital Signs Temperature 98.1 F 02/14/17 15:54 Pulse Rate 88 02/14/17 15:54 Respiratory Rate 18 02/14/17 15:54 Blood Pressure 117/84 02/14/17 15:54 O2 Sat by Pulse Oximetry 96 02/14/17 15:54 Temperature 98.1 F 02/14/17 15:54 Pulse Rate 88 02/14/17 15:54 Respiratory Rate 18 02/14/17 15:54 Blood Pressure 117/84 02/14/17 15:54 O2 Sat by Pulse Oximetry 96 02/14/17 15:54 Oxygen Delivery Oxygen Delivery Room Air Medical Decision Making - MDM Narrative Medical decision making narrative: The patient appears to be stable from a medical standpoint. She appears to have a urinary tract infection. Cipro was given the ED. The psychiatric counselors were consulted, they have recommended admission to the hospital. They recommend a pink slip. The patient is stable pending psychiatric admission. - Lab Data Lab results reviewed: Yes I reviewed the patient's lab results. Result diagrams: 02/14/17 16:33 02/14/17 16:33 Lab Results 02/14/17 02/14/17 02/14/17 Range/Units 16:33 16:33 16:33 WBC 6.0 (4.3-11.1) K/mcL RBC 4.11 (3.82-4.97) M/mcL Hgb 12.2 (11.5-15.4) g/dL Hct 35.4 (35.3-44.9) % MCV 86.1 (83.0-100.0) fL MCH 29.7 (28.0-33.3) pg MCHC 34.5 (31.6-35.5) g/dL RDW 12.3 (11.5-14.5) % Plt Count 131 L (140-400) K/mcL MPV 10.0 (9.4-12.4) fL Immature Gran % 0.5 (0-4) % Seg Neutrophils % 41.8 % Lymphocytes % 48.5 % Monocytes % 6.3 % Eosinophils % 2.2 % Basophils % 0.7 % Neutrophils # 2.5 (1.6-8.9) K/mcL Lymphocytes # 2.9 (0.6-4.6) K/mcL Monocytes # 0.4 (0.0-1.3) K/mcL Eosinophils # 0.1 (0.0-0.6) K/mcL Basophils # 0.0 (0.0-0.2) K/mcL Sodium 139 (136-145) mEq/L Potassium 3.8 (3.5-4.5) mEq/L Chloride 108 (98-109) mEq/L Carbon Dioxide 24 (19-29) mEq/L BUN 16 (7-20) mg/dL Creatinine 0.75 (0.57-1.11) mg/dL Est GFR ( Amer) > 60 (> 60) Est GFR (Non-Af Amer) > 60 (> 60) BUN/Creatinine Ratio 21 (6-26) Glucose 76 (70-99) mg/dL Calculated Osmolality 288 (280-300) Calcium 8.8 (8.6-10.8) mg/dL Serum , Qual Negative (Negative) Urine Color (Yellow) Urine Clarity (Clear) Urine pH (5.0-8.0) pH Units Ur Specific [place] (1.010-1.025) Urine Protein (Neg-Trace) mg/dL Urine Glucose (UA) (Normal) mg/dL Urine Ketones (Negative) mg/dL Urine Blood (Negative) Urine Nitrite (Negative) Urine Bilirubin (Negative) Urine Urobilinogen (Normal) mg/dL Ur Leukocyte Esterase (Negative) Urine Microscopic RBC (0-3) per hpf Urine Microscopic WBC (0-3) per hpf Ur Squamous Epith Cells (None-Few) per lpf Urine Bacteria (None-Few) per hpf Hyaline Casts (None-Few) per lpf Salicylates < 5.0 L (15-30) mg/dL Urine Opiates Screen (Ikfunz=378) ng/mL Acetaminophen < 1.0 L (10-30) mcg/mL Ur Barbiturates Screen (Ppurwk=971) ng/mL Ur Phencyclidine Scrn (Cutoff=25) ng/mL Ur Amphetamines Screen (Zaqdbk=9000) ng/mL U Benzodiazepines Scrn (Uecuck=588) ng/mL Urine Cocaine Screen (Cutoff= 300) ng/mL U Marijuana (THC) Screen (Cutoff = 50) ng/mL Ethyl Alcohol < 10 (0-10) mg/dL 02/14/17 02/14/17 Range/Units 18:30 18:30 WBC (4.3-11.1) K/mcL RBC (3.82-4.97) M/mcL Hgb (11.5-15.4) g/dL Hct (35.3-44.9) % MCV (83.0-100.0) fL MCH (28.0-33.3) pg MCHC (31.6-35.5) g/dL RDW (11.5-14.5) % Plt Count (140-400) K/mcL MPV (9.4-12.4) fL Immature Gran % (0-4) % Seg Neutrophils % % Lymphocytes % % Monocytes % % Eosinophils % % Basophils % % Neutrophils # (1.6-8.9) K/mcL Lymphocytes # (0.6-4.6) K/mcL Monocytes # (0.0-1.3) K/mcL Eosinophils # (0.0-0.6) K/mcL Basophils # (0.0-0.2) K/mcL Sodium (136-145) mEq/L Potassium (3.5-4.5) mEq/L Chloride (98-109) mEq/L Carbon Dioxide (19-29) mEq/L BUN (7-20) mg/dL Creatinine (0.57-1.11) mg/dL Est GFR ( Amer) (> 60) Est GFR (Non-Af Amer) (> 60) BUN/Creatinine Ratio (6-26) Glucose (70-99) mg/dL Calculated Osmolality (280-300) Calcium (8.6-10.8) mg/dL Serum , Qual (Negative) Urine Color Dark Yellow (Yellow) Urine Clarity Cloudy A (Clear) Urine pH 6.5 (5.0-8.0) pH Units Ur Specific [place] 1.027 H (1.010-1.025) Urine Protein Negative (Neg-Trace) mg/dL Urine Glucose (UA) Normal (Normal) mg/dL Urine Ketones Trace H (Negative) mg/dL Urine Blood Negative (Negative) Urine Nitrite Negative (Negative) Urine Bilirubin Large H (Negative) Urine Urobilinogen Normal (Normal) mg/dL Ur Leukocyte Esterase Negative (Negative) Urine Microscopic RBC 0-3 (0-3) per hpf Urine Microscopic WBC 5-15 H (0-3) per hpf Ur Squamous Epith Cells Many H (None-Few) per lpf Urine Bacteria Moderate H (None-Few) per hpf Hyaline Casts Few (None-Few) per lpf Salicylates (15-30) mg/dL Urine Opiates Screen Negative (Ygbnbt=031) ng/mL Acetaminophen (10-30) mcg/mL Ur Barbiturates Screen Negative (Ouhvlm=987) ng/mL Ur Phencyclidine Scrn Negative (Cutoff=25) ng/mL Ur Amphetamines Screen Negative (Rzxtfo=4065) ng/mL U Benzodiazepines Scrn Negative (Kkjfwf=626) ng/mL Urine Cocaine Screen Negative (Cutoff= 300) ng/mL U Marijuana (THC) Screen Negative (Cutoff = 50) ng/mL Ethyl Alcohol (0-10) mg/dL - Radiology Data Radiology results reviewed: Yes I reviewed the patient's radiology results.
[2017-02-14 16:56] LABS: Basophils % 0.7 %; Eosinophils # 0.1 K/mcL (0.0-0.6); Eosinophils % 2.2 %; Hematocrit 35.4 % (35.3-44.9); Hemoglobin 12.2 g/dL (11.5-15.4); Immature Granulocytes % 0.5 % (0-4); Lymphocytes # 2.9 K/mcL (0.6-4.6); Lymphocytes % 48.5 %; Mean Corpuscular HGB Conc 34.5 g/dL (31.6-35.5); Mean Corpuscular Hemoglobin 29.7 pg (28.0-33.3); Mean Corpuscular Volume 86.1 fL (83.0-100.0); Monocytes # 0.4 K/mcL (0.0-1.3); Monocytes % 6.3 %; Neutrophils # 2.5 K/mcL (1.6-8.9); Platelet Count 131 K/mcL (140-400); Red Blood Count 4.11 M/mcL (3.82-4.97); Red Cell Distribution Width 12.3 % (11.5-14.5); Segmented Neutrophils % 41.8 %
[2017-02-14 17:12] LABS: BUN/Creatinine Ratio 21 (6-26); Blood Urea Nitrogen 16 mg/dL (7-20); Calcium 8.8 mg/dL (8.6-10.8); Carbon Dioxide 24 mEq/L (19-29); Chloride 108 mEq/L (98-109); Glucose 76 mg/dL (70-99); Osmolality,Calculated 288 (280-300); Potassium 3.8 mEq/L (3.5-4.5); Sodium 139 mEq/L (136-145); eGFR For African Americans > 60 (> 60); eGFR For Non-African Americans > 60 (> 60)
[2017-02-14 17:14] LABS: Acetaminophen < 1.0 mcg/mL (10-30); Ethanol < 10 mg/dL (0-10); Salicylate < 5.0 mg/dL (15-30)
[2017-02-14 18:34] LABS: Bilirubin,Urine Large (Negative); Blood,Urine Negative (Negative); Clarity,Urine Cloudy (Clear); Color,Urine Dark Yellow (Yellow); Glucose,Urine (UA) Normal (Normal); Ketones,Urine Trace mg/dL (Negative); Leukocyte Esterase,Urine Negative (Negative); Nitrite,Urine Negative (Negative); PH,Urine 6.5 pH Units (5.0-8.0); Protein,Urine Negative (Neg-Trace); Specific Gravity,Urine 1.027 (1.010-1.025); Urobilinogen,Urine Normal (Normal)
[2017-02-14 18:37] LABS: Bacteria,Urine Moderate per hpf (None-Few); Hyaline Casts,Urine Few per lpf (None-Few); RBC,Urine 0-3 per hpf (0-3); Squamous Epithelial Cell,Urine Many per lpf (None-Few)
[2017-02-14 18:51] LABS: Amphetamine Screen,Urine Negative ng/mL (Cutoff=1000); Barbiturate Screen,Urine Negative ng/mL (Cutoff=200); Benzodiazepines Screen,Urine Negative ng/mL (Cutoff=200); Cannabinoid Screen,Urine Negative ng/mL (Cutoff = 50); Cocaine Screen,Urine Negative ng/mL (Cutoff= 300); Opiate Screen,Urine Negative ng/mL (Cutoff=300); Phencyclidine Screen,Urine Negative ng/mL (Cutoff=25)
[2017-02-14] MEDS ORDERED: MOM Conc 10 ML UD.LIQ PO PRN (20:35)
[2017-02-14] MEDS ORDERED: Haloperidol Lactate 5 MG/ML VIAL IM PRN (20:35)
[2017-02-14] MEDS ORDERED: *HR* LORazepam 2 MG/ML VIAL IM PRN (20:35)
[2017-02-14] MEDS ORDERED: Mag Hydrox/Al Hydrox/Simeth 30 ML UDC PO PRN (20:35)
[2017-02-14] MEDS ORDERED: *HR* LORazepam 1 MG TABLET PO PRN (20:35)
[2017-02-14] MEDS ORDERED: (Rizatriptan Benzoate [Maxalt] 5 MG) PO PRN (20:42)
[2017-02-14] MEDS ORDERED: ETODOLAC 500 MG PO SCH (21:00)
[2017-02-14] MEDS: traZODone 50 MG TABLET PO PRN (21:52)
[2017-02-14] MEDS: Divalproex (12 HR) 500 MG TABLET PO SCH (21:52)
[2017-02-15] MEDS: *HR* Metformin 500 MG TABLET PO SCH ×2 (08:46→16:47)
--- NOTE | 2017-02-15 12:23 | Psychiatry History & Physical ---
Date of Encounter: 02/15/17 Time of Encounter: 12:20 History of Present Illness Patient Stated Chief Complaint: suicidal ideation Medicare Admission Attestation: For traditional Medicare patients the provided hospital inpatient services are reasonable and necessary and in the case of services not specified as inpatient -only under 42 CFR 419.22 (n), that they are appropriately provided as inpatient services in accordance 42 CFR 412.3. For Critical Access Hospital the patient may reasonably be expected to be discharged or transferred to a hospital within 96 hours after admission to the Critical Access Hospital. Admitted From: Home Plans for Post Hospital Care: Home History of Present Illness: Ms. Nicholas is a 41 year old female who was admitted secondary to SI. Reports she suffers from anger and a short temper. Discharged from inpatient psych in August. Went to live with brother but he ultimately kicked her out. Now lives with boyfriend and his family. She can return there but she has to have her anger under control to come back. Already linked with services-has counseling and medication management through [facility]. May benefit from anger management groups through them as well. Boyfriend's mother manages her medications. Discussed options. Already taking Depakote and Latuda. Wants to try Seroquel. Discussed metabolic issues with Seroquel (client already has DM and obesity) but a low dose may be effective in her situation. Past Med Surg Social Fam HX - Past Medical History Medical history: diabetes, hypertension, seizures - Past Psychiatric History Psychiatric history: Reports: bipolar, depression, previous psychiatric hospitalization Family psychiatric history: Unknown Family History of Suicide: Unknown - Past Surgical History Surgical History: breast surgery, , orthopedic, other - Social History Smoking Status: Never smoker Smokeless Tobacco Status: No Alcohol use: none Drug use: none - Family History Mother History Unknown: Yes Father History Unknown: Yes Medications & Allergies Divalproex (12 HR) [Depakote (12 HR)] 1,000 mg PO HS 02/04/17 [History] Lisinopril [Zestril] 10 mg PO DAILY 02/04/17 [History] Lurasidone [Latuda] 40 mg PO DAILY 02/04/17 [History] Prazosin [Minipress] 1 mg PO HS 02/04/17 [History] Rizatriptan Benzoate [Maxalt] 5 mg PO DAILY PRN 02/04/17 [History] Simvastatin [Zocor] 40 mg PO HS 02/04/17 [History] metFORMIN [Glucophage] 500 mg PO BIDWM 02/04/17 [History] Diclofenac Potassium 50 mg PO BID 02/14/17 [History] Etodolac 500 mg PO BID 02/14/17 [History] Allergies Penicillins [PCN] Allergy (Verified 02/14/17 14:47) Anaphylaxis Review of Systems Constitutional: Denies: fever, chills, weakness, weight change Eyes: Denies: eye pain, vision change Ears, Nose, Throat: Denies: ear pain, throat pain, dental pain, hearing loss, congestion Cardiovascular: Denies: chest pain, palpitations, dyspnea on exertion Respiratory: Denies: cough, dyspnea, wheezes Gastrointestinal: Denies: abdominal pain, nausea, vomiting, diarrhea, constipation Genitourinary male: Denies: urgency, dysuria, frequency, genital lesions Genitourinary female: Denies: urgency, dysuria, frequency, abnormal menses, dyspareunia Musculoskeletal: Denies: joint swelling, joint pain Integumentary: Denies: rash, lesions, pruritus Neurological: Denies: headache, weakness, numbness, memory loss Endocrine: Denies: fatigue, heat or cold intolerance Hematologic/Lymphatic: Denies: easy bruising, lymphadenopathy Allergic/Immunologic: Denies: urticaria, itchy eyes Mental Status Exam Patient orientation: Yes Person, Yes Time, Yes Place Level of alertness: Alert Patient appearance: Appropriate Behavior: calm, cooperative Psychomotor activity: Normal Eye contact: Maintains Eye Contact Mood description: Angry, Depressed Affect description: congruent with mood Speech pattern: Normal rate, Normal rhythm, Normal tone Speech volume: Normal Thought process: Linear Thought content: Yes Suicidal ideation, No Homicidal ideation, No Overt delusions Perceptual disturbances: No Auditory hallucinations, No Visual hallucinations Attention span: Capable of Focused Attention Memory description: Grossly Intact Patient reliability: Reliable Historian Intelligence estimate: Below Average Judgment: Poor Insight: Minimal Exam - HEENT Head exam IM: Present: atraumatic Eye exam IM: Present: EOMI ENT exam IM: Present: mucous membranes moist - Neurological Neurological exam IM: Present: alert, oriented X3 - Respiratory Respiratory exam IM: Present: CTAB - GI/Abdominal GI/Abdominal exam IM: Present: normal bowel sounds - Extremities Extremities exam IM: Present: full ROM - Skin Skin exam IM: Present: normal color Results - Vital Signs Vital signs: Temp Pulse Resp BP Pulse Ox 98 F 70 16 105/66 96 02/15/17 08:41 02/15/17 08:41 02/15/17 08:41 02/15/17 08:41 02/14/17 15:54 - Labs Labs: Laboratory Last Values WBC 6.0 K/mcL (4.3-11.1) 02/14/17 16:33 RBC 4.11 M/mcL (3.82-4.97) 02/14/17 16:33 Hgb 12.2 g/dL (11.5-15.4) 02/14/17 16:33 Hct 35.4 % (35.3-44.9) 02/14/17 16:33 MCV 86.1 fL (83.0-100.0) 02/14/17 16:33 MCH 29.7 pg (28.0-33.3) 02/14/17 16:33 MCHC 34.5 g/dL (31.6-35.5) 02/14/17 16:33 RDW 12.3 % (11.5-14.5) 02/14/17 16:33 Plt Count 131 K/mcL (140-400) L 02/14/17 16:33 MPV 10.0 fL (9.4-12.4) 02/14/17 16:33 Immature Gran % 0.5 % (0-4) 02/14/17 16:33 Seg Neutrophils % 41.8 % 02/14/17 16:33 Lymphocytes % 48.5 % 02/14/17 16:33 Monocytes % 6.3 % 02/14/17 16:33 Eosinophils % 2.2 % 02/14/17 16:33 Basophils % 0.7 % 02/14/17 16:33 Neutrophils # 2.5 K/mcL (1.6-8.9) 02/14/17 16:33 Lymphocytes # 2.9 K/mcL (0.6-4.6) 02/14/17 16:33 Monocytes # 0.4 K/mcL (0.0-1.3) 02/14/17 16:33 Eosinophils # 0.1 K/mcL (0.0-0.6) 02/14/17 16:33 Basophils # 0.0 K/mcL (0.0-0.2) 02/14/17 16:33 Sodium 139 mEq/L (136-145) 02/14/17 16:33 Potassium 3.8 mEq/L (3.5-4.5) 02/14/17 16:33 Chloride 108 mEq/L (98-109) 02/14/17 16:33 Carbon Dioxide 24 mEq/L (19-29) 02/14/17 16:33 BUN 16 mg/dL (7-20) 02/14/17 16:33 Creatinine 0.75 mg/dL (0.57-1.11) 02/14/17 16:33 Est GFR ( Amer) > 60 (> 60) 02/14/17 16:33 Est GFR (Non-Af Amer) > 60 (> 60) 02/14/17 16:33 BUN/Creatinine Ratio 21 (6-26) 02/14/17 16:33 Glucose 76 mg/dL (70-99) 02/14/17 16:33 POC Glucose 94 (58-89) H 02/15/17 08:15 Calculated Osmolality 288 (280-300) 02/14/17 16:33 Calcium 8.8 mg/dL (8.6-10.8) 02/14/17 16:33 Serum , Qual Negative (Negative) 02/14/17 16:33 Urine Color Dark Yellow (Yellow) 02/14/17 18:30 Urine Clarity Cloudy (Clear) A 02/14/17 18:30 Urine pH 6.5 pH Units (5.0-8.0) 02/14/17 18:30 Ur Specific [place] 1.027 (1.010-1.025) H 02/14/17 18:30 Urine Protein Negative mg/dL (Neg-Trace) 02/14/17 18:30 Urine Glucose (UA) Normal mg/dL (Normal) 02/14/17 18:30 Urine Ketones Trace mg/dL (Negative) H 02/14/17 18:30 Urine Blood Negative (Negative) 02/14/17 18:30 Urine Nitrite Negative (Negative) 02/14/17 18:30 Urine Bilirubin Large (Negative) H 02/14/17 18:30 Urine Urobilinogen Normal mg/dL (Normal) 02/14/17 18:30 Ur Leukocyte Esterase Negative (Negative) 02/14/17 18:30 Urine Microscopic RBC 0-3 per hpf (0-3) 02/14/17 18:30 Urine Microscopic WBC 5-15 per hpf (0-3) H 02/14/17 18:30 Ur Squamous Epith Cells Many per lpf (None-Few) H 02/14/17 18:30 Urine Bacteria Moderate per hpf (None-Few) H 02/14/17 18:30 Hyaline Casts Few per lpf (None-Few) 02/14/17 18:30 Salicylates < 5.0 mg/dL (15-30) L 02/14/17 16:33 Urine Opiates Screen Negative ng/mL (Ahoxtf=737) 02/14/17 18:30 Acetaminophen < 1.0 mcg/mL (10-30) L 02/14/17 16:33 Ur Barbiturates Screen Negative ng/mL (Tegbpp=269) 02/14/17 18:30 Ur Phencyclidine Scrn Negative ng/mL (Cutoff=25) 02/14/17 18:30 Ur Amphetamines Screen Negative ng/mL (Fmyerw=3041) 02/14/17 18:30 U Benzodiazepines Scrn Negative ng/mL (Rlzpbo=506) 02/14/17 18:30 Urine Cocaine Screen Negative ng/mL (Cutoff= 300) 02/14/17 18:30 U Marijuana (THC) Screen Negative ng/mL (Cutoff = 50) 02/14/17 18:30 Ethyl Alcohol < 10 mg/dL (0-10) 02/14/17 16:33 Assessment and Plan (1) Depression Current visit: Yes Status: Acute Plan: Admit inpatient for safety and stabilization, Close observation, Suicide Precautions per unit protocol, Encourage participation in unit milieu, Group Therapy, Monitor sleep, Monitor appetite, Secure weapons Risks, benefits, side effects, alternatives discussed w/pt: Yes Patient agreeable to treatment : Yes Plans for Post Hospital Care: Home Estimated Length of Stay (Days): 4 Qualifiers: Depression Type: major depressive disorder Major depression recurrence: recurrent Active/Remission status: currently active Major depression episode severity: severe Psychotic features: without psychotic features Qualified Code(s): F33.2 - Major depressive disorder, recurrent severe without psychotic features
[2017-02-15] MEDS: traZODone 50 MG TABLET PO PRN (21:13)
[2017-02-15] MEDS: Divalproex (12 HR) 500 MG TABLET PO SCH (21:14)
[2017-02-16] MEDS: *HR* Metformin 500 MG TABLET PO SCH ×2 (08:36→16:27)
--- NOTE | 2017-02-16 12:01 | Psychiatry Progress Note ---
Date of Encounter: 02/16/17 Time of Encounter: 11:59 Subjective Interval history: Reports she is feeling better. Denying SI. Compliant with Seroquel last night. Slept well. No anger episodes on the unit. Interacting with others appropriately. May be different once she returns to her home environment but no behavior problems here. Will verify with family that she can return to live with them and if everything checks out can likely discharge tomorrow. Review of Systems Constitutional: Denies: fever, chills, weakness, weight change Eyes: Denies: eye pain, vision change Ears, Nose, Throat: Denies: ear pain, throat pain, dental pain, hearing loss, congestion Cardiovascular: Denies: chest pain, palpitations, dyspnea on exertion Respiratory: Denies: cough, dyspnea, wheezes Gastrointestinal: Denies: abdominal pain, nausea, vomiting, diarrhea, constipation Musculoskeletal: Denies: joint swelling, joint pain Neurological: Denies: headache, weakness, numbness, memory loss Objective: Exam Patient orientation: Yes Person, Yes Time, Yes Place Level of alertness: Alert Patient appearance: Appropriate Behavior: calm, cooperative Psychomotor activity: Normal Eye contact: Maintains Eye Contact Mood description: Euthymic/stable Affect description: blunted Speech pattern: Normal rate, Normal rhythm, Normal tone Speech volume: Normal Thought process: Linear, Goal Oriented Thought content: No Suicidal ideation, No Homicidal ideation, No Overt delusions Perceptual disturbances: No Auditory hallucinations, No Visual hallucinations Judgment: Limited Insight: Minimal Results - Vital Signs Vital Signs: Temp Pulse Resp BP Pulse Ox 97.5 F L 67 16 107/74 96 02/16/17 08:56 02/16/17 08:56 02/16/17 08:56 02/16/17 08:56 02/14/17 15:54 - Labs Labs: Laboratory Results - last 24 hr 02/15/17 02/16/17 16:33 07:09 POC Glucose 97 H 100 H Assessment and Plan (1) Depression Current visit: Yes Status: Acute Plan: Continue hospitalization Risks, benefits, side effects, alternatives discussed w/pt: Yes Patient agreeable to treatment: Yes Qualifiers: Depression Type: major depressive disorder Major depression recurrence: recurrent Active/Remission status: currently active Major depression episode severity: severe Psychotic features: without psychotic features Qualified Code(s): F33.2 - Major depressive disorder, recurrent severe without psychotic features Consult Discharge Plan - Plan [facility] [place] [facility] - [place]/25/17 10:00 am (The above appointment is with Beth Díaz for counseling. You will also see Rebecca Morgan, psychiatric nurse practitioner on 03/23/17 at 8:30 am. You may call on Tuesday mornings to check for cancellations that would allow you to be seen sooner.)
[2017-02-16] MEDS: Ibuprofen 400 MG TABLET PO PRN ×2 (16:27→21:51)
[2017-02-16] MEDS: Divalproex (12 HR) 500 MG TABLET PO SCH (21:49)
[2017-02-17] MEDS: *HR* Metformin 500 MG TABLET PO SCH (08:08)
[2017-02-17] MEDS: Ibuprofen 400 MG TABLET PO PRN (08:08)
[2017-02-17 08:17] VITALS: BP 106/68
--- NOTE | 2017-02-17 12:44 | Discharge Summary ---
Date of Encounter: 02/17/17 Time of Encounter: 12:40 Diagnosis - Discharge Diagnosis (1) Depression Status: Acute Qualifiers: Depression Type: major depressive disorder Major depression recurrence: recurrent Active/Remission status: currently active Major depression episode severity: severe Psychotic features: without psychotic features Qualified Code(s): F33.2 - Major depressive disorder, recurrent severe without psychotic features Medications - Discharge Medications Prescriptions: Quetiapine Fumarate [Seroquel] 100 mg PO HS #30 tablet Divalproex (12 HR) [Depakote (12 HR)] 1,000 mg PO HS 02/04/17 [History] Lisinopril [Zestril] 10 mg PO DAILY 02/04/17 [History] Lurasidone [Latuda] 40 mg PO DAILY 02/04/17 [History] Prazosin [Minipress] 1 mg PO HS 02/04/17 [History] Rizatriptan Benzoate [Maxalt] 5 mg PO DAILY PRN 02/04/17 [History] Simvastatin [Zocor] 40 mg PO HS 02/04/17 [History] metFORMIN [Glucophage] 500 mg PO BIDWM 02/04/17 [History] Diclofenac Potassium 50 mg PO BID 02/14/17 [History] Etodolac 500 mg PO BID 02/14/17 [History] Quetiapine Fumarate [Seroquel] 100 mg PO HS #30 tablet 02/17/17 [Rx] Allergies Penicillins [PCN] Allergy (Verified 02/14/17 14:47) Anaphylaxis Provider Date of admission: 02/14/17 20:29 Primary care physician: PCP NO Discharging clinician: Shakila Cárdenas Assessment and Plan - Patient/Caregiver Discharge Instructions Activity: resume usual activities as tolerated Diet: diabetic diet - Follow up Plan [facility] [place] [facility] - 02/25/17 10:00 am (The above appointment is with Beth Díaz for mental health counseling. You will also see Rebecca Morgan psychiatric nurse practitioner on 03/23/17 at 8:30 am. This is her first available appointment. You may call each Tuesday morning to check for cancellations that would allow you to be seen sooner.) Overall status at discharge: Stable Disposition: Home, Self-Care Hospital Course Hospital course: Ms. Nicholas is a 41 year old female who was admitted secondary to SI. Client and boyfriend's family (whom she lives with) reported her main problem is anger and a quick temper. Already taking multiple meds but low dose Seroquel added to medication regimen. Client found medication helpful. No anger episodes in hospital. Behavior appropriate. Interactive with staff and peers. Slept and ate well. Denied further SI on the day of discharge. Boyfriend's family were willing to have her return to live with them and his mother indicated she would manage the medications for Ms. Nicholas. - Time Spent with Patient Total time spent providing and/or coordinating discharge services: Quality - Multiple Antipsychotics Patient discharged on 2 or more antipsychotic medications: Yes - Justification Documentation of: History 3 failed trials of monotherapy (latuda, seroquel, haldol) Procedures - Procedures Procedures: Medication Management, Crisis Stabilization, Supportive Therapy, Group Therapy Mental Status Exam - Mental Status Exam Patient orientation: Yes Person, Yes Time, Yes Place Level of alertness: Alert Patient appearance: Appropriate Behavior: calm, cooperative Psychomotor activity: Normal Eye contact: Maintains Eye Contact Mood description: Euthymic/stable Affect description: constricted Speech pattern: Normal rate, Normal rhythm, Normal tone Speech Volume: Normal Thought process: Linear, Mcguffey Thought Content: No Suicidal ideation, No Homicidal ideation, No Overt delusions Perceptual Disturbances: No Auditory hallucinations, No Visual hallucinations Judgment: Fair Insight: Partial
== END 2017-02-17 14:45 | disposition home or self-care (01) | DRG 751 ==
LOC: EMEROO 15:45 → 1ANU 20:29
PROVIDERS: ADMIT Psychiatry & Neurology Psychiatry; ATTEND Psychiatry & Neurology Psychiatry